=== PATIENT | male | born 1940 | race Caucasian/White ===

== ENCOUNTER → 2022-03-20 | Outpatient (CLI) | payer OTHER, SELFPAY ==
--- NOTE | 2022-03-20 09:46 | BI_ITS ---
MAMMOGRAPHY - BILATERAL DIAGNOSTIC REASON FOR EXAM: Male, 82 years old. Left breast pain. PERTINENT HISTORY: Mother with breast cancer. TECHNIQUE: Digital bilateral breast saira (3D mammographic acquisition) in the CC and MLO projections. 2-D mediolateral oblique (MLO) and craniocaudad (CC) views of both breasts were obtained. CAD: Full Field Digital Mammography with Computer Added Detection was performed. COMPARISON: None. Baseline examination. FINDINGS: Breast Composition: The breasts are almost entirely fatty. There are no dominant masses or suspicious calcifications. Asymmetry of breast tissue where more breast tissue is seen in the retroareolar region of the left breast as compared to the right side. This most likely represents gynecomastia. Correlation with ultrasound is recommended. No other significant abnormalities are identified. BI/DIAG MAMM W/CAD, BILAT IMPRESSION: Asymmetrical breast tissue in the retroareolar region of the left breast. Correlation with ultrasound is recommended. ASSESSMENT CATEGORY: BIRADS Category 0: Incomplete. Need additional imaging evaluation. A letter regarding these results will be sent to the patient by the facility within 30 days. Approximately 10% of breast cancers are not detected by mammography. A normal mammogram should not delay biopsy of a clinically suspicious abnormality. Electronically Signed: Dominic Sanders MD at 10:24 EDT ,
--- NOTE | 2022-03-20 09:52 | US_ITS ---
STUDY: ULTRASOUND BREAST - LEFT REASON FOR EXAM: Male, 82 years old. Pain in the left breast. TECHNIQUE: Axial and longitudinal images of the LEFT breast were performed with a high resolution ultrasound transducer. # OF IMAGES: 22 COMPARISON: Comparison is made with prior mammogram done earlier today. FINDINGS: LEFT Breast: There is a 1.5 cm x 1.2 cm x 1.3 cm hypoechoic irregular density corresponding to the palpable abnormality. Biopsy recommended. US/Breast Limited Unilateral IMPRESSION: The palpable abnormality corresponds to 1.5 cm x 1.2 cm x 1.3 cm hypoechoic irregular nodule. Biopsy recommended. ASSESSMENT CATEGORY: BIRADS Category 4: Suspicious - Biopsy Should Be Considered. A letter regarding these results will be sent to the patient by the facility within 30 days. Electronically Signed: Dominic Sanders MD at 11:12 EDT ,
== END | disposition home or self-care (01) ==
DX: N64.4 Mastodynia (principal); N63.20 Unspecified lump in the left breast, unspecified quadrant; Z80.3 Family history of malignant neoplasm of breast
CPT/HCPCS: 76642; 77062; 77066; G0279

== ENCOUNTER → 2022-04-04 | Outpatient (CLI) | payer MEDICARE, SELFPAY ==
--- NOTE | 2022-04-04 08:30 | BRBX_PTH ---
PATIENT: LINDA DANIELS LOC: [facility] U#:[id number] AGE/SX: 82/M ROOM: RE04/04/[address]: Dr. Ray Bernal MD : 1940 BED: DIS: 04/04/2022 SPEC #: [id number] RECD: 04/04/22 09:14 STATUS: [place] VIN #: [id number] SULLY: 04/04/22 08:[address]: Ray Bernal DEPT: SURGICAL PATHOLOGY RECD BY: Jamar Santiago ENTERED: 04/04/22 10:43 SP TYPE: BREAST BX OTHR DR: [facility] Tissues: Left breast, NOS Procedures: Surgery Specimen Level IV HEADER OPERATION: Left breast mass biopsy PRE-OP DIAGNOSIS: Left breast mass TISSUE SUBMITTED: Left breast mass MICROSCOPIC DIAGNOSIS Left breast mass, core biopsy: Male breast tissue with focal changes suggestive of gynecomastia. Negative for atypia or malignancy. See comment. SJ:ladarius 04/05/2022 COMMENT Clinical correlation and appropriate follow up are necessary. MICROSCOPIC DESCRIPTION Slides are reviewed. GROSS DESCRIPTION Received in fixative is one container labeled with the patient's name and designated left breast mass biopsy. The specimen consists of two elongated fragments of esposito-yellow fibroadipose tissue each measuring 2 cm in length and 0.1 cm in diameter. The entire specimen is submitted in one cassette. / CHANO:ladarius 04/04/2022 TC:5 CPT: 82133
== END | disposition home or self-care (01) ==
PROVIDERS: Referring Provider Surgery; Visit Provider Surgery
DX: N63.20 Unspecified lump in the left breast, unspecified quadrant (principal)
CPT/HCPCS: 88305